=== PATIENT | female | born 1935 | race Caucasian/White ===

== ENCOUNTER 2016-11-06 21:53 | Emergency (ER) | payer MEDICARE ==
[2016-11-06 22:17] VITALS: BP 143/63
--- NOTE | 2016-11-06 22:20 | EDM.PDOC ---
ED HPI GENERAL MEDICAL PROBLEM - General Chief Complaint: General Stated Complaint: INSECT BITES Time Seen by Provider: 11/06/16 22:15 Source of Information: Reports: Patient, Family (). Denies: Old Records ([facility] EMR. No paper hospital chart available.) History Limitations: Reports: No Limitations - History of Present Illness INITIAL COMMENTS - FREE TEXT/NARRATIVE: The patient was brought to the emergency room via private automobile by her for evaluation of progressive pruritus secondary to multiple mosquito bites, which she obtained while watching fireworks on 11/04. Symptoms have been refractory to low-dose Benadryl with last 25 mg dose at 10 AM this morning. Patient has been using topical cortisone cream on a 3 times a day basis since this morning. No history of fever, local signs of infection, or other complaints Onset: Gradual Onset Date: 11/04/16 Duration: Constant, Getting Worse Location: Reports: Lower Extremity, Left, Lower Extremity, Right. Denies: Head , Face, Neck, Chest, Abdomen, Back, Pelvis, Upper Extremity, Left, Upper Extremity, Right, Radiates to Quality: Reports: Ache, Same as Previous Episode Improves with: Reports: None Worsens with: Reports: None Context: Reports: Other (As above) Associated Symptoms: Reports: Rash. 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 Medication(s) (As above) Bilateral Lower Leg Pain Score (Numeric/FACES): 8 - Related Data Allergies Allergy/AdvReac Type Severity Reaction Status Date / Time meperidine [From Demerol] Allergy Disorientat Verified 11/06/16 21:54 ion Home Meds: Home Meds Anastrozole [Arimidex] 1 mg PO DAILY 11/06/16 [History] Aspirin [Halfprin] 1 tab PO DAILY 11/06/16 [History] Calcium Phosphate Trib/Vit D3 [Citracal + D3 Gummies] 1 tab PO DAILY 11/06/16 [ History] Hydrocortisone [Cortisone] 1 applic TOP BID PRN #1 tube 11/06/16 [Rx] Lansoprazole [Prevacid] 30 mg PO DAILY 11/06/16 [History] Ranitidine [Zantac] 300 mg PO DAILY 11/06/16 [History] Ubidecarenone [Coq-10] 1 tab PO DAILY 11/06/16 [History] diphenhydrAMINE [Benadryl] 50 mg PO Q4H PRN #100 cap 11/06/16 [Rx] Past Medical History HEENT History: Reports: Cataract, Impaired Vision, Other (See Below). Denies: Glaucoma, Hard of Hearing, Macular Degeneration Other HEENT History: wears glasses Cardiovascular History: Reports: High Cholesterol. Denies: Afib, Aneurysm, Arrhythmia, Blood Clots/VTE/DVT, CAD, Heart Failure, Heart Murmur, Hypertension , ND, Syncope Musculoskeletal History: Reports: Arthritis, Back Pain, Chronic, Neck Pain, Chronic, Osteoarthritis, Osteoporosis. Denies: Amputation, Fracture, Gout, RA, SLE Oncologic (Cancer) History: Reports: Breast, Other (See Below) Other Oncologic History: Left-sided breast cancer diagnosed in 2011 with radiation therapy with surgery as below - Past Surgical History Oncologic Surgical History: Reports: Lumpectomy, Other (See Below) Other Oncologic Surgeries/Procedures: Left sided lumpectomy with lymph node dissection in September 2011 Social & Family History - Tobacco Use Smoking Status *Q: Never Smoker Smoking Cessation Information Provided To Patient: No Second Hand Smoke Exposure: No Second Hand Smoke Education Provided: No - Caffeine Use Caffeine Use: Reports: Coffee (2 cups per day) - Alcohol Use Alcohol Use History: No Days Per Week of Alcohol Use: 0 Alcohol Use in Last Twelve Months: No - Recreational Drug Use Recreational Drug Use: No Drug Use in Last 12 Months: No - Living Situation & Occupation Living situation: Reports: ED ROS GENERAL - Review of Systems Review Of Systems: See Below Constitutional: Reports: No Symptoms. Denies: Fever, Chills, Weakness, Fatigue , Night Sweats, Diaphoresis HEENT: Reports: No Symptoms, Glasses. Denies: Ear Pain, Eye Pain, Rhinitis, Throat Pain, Vertigo Respiratory: Reports: No Symptoms. Denies: Shortness of Breath, Wheezing, Cough Cardiovascular: Reports: No Symptoms. Denies: Chest Pain, Blood Pressure Problem, Edema, Lightheadedness Endocrine: Reports: No Symptoms. Denies: Fatigue GI/Abdominal: Reports: No Symptoms. Denies: Abdominal Pain, Anorexia, Black Stool, Bloody Stool, Constipation, Diarrhea, Decreased Appetite, Difficulty Swallowing, Hematochezia, Melena, Nausea, Vomiting : Reports: No Symptoms Musculoskeletal: Reports: No Symptoms. Denies: Joint Pain, Joint Swelling, Muscle Pain, Muscle Stiffness Skin: Reports: Pruritis, Rash (Secondary to insect bites). Denies: Diaphoresis , Wound Neurological: Reports: No Symptoms. Denies: Confusion, Numbness, Paresthesia, Tingling Psychiatric: Reports: No Symptoms. Denies: Agitation, Anxiety, Depression Hematologic/Lymphatic: Reports: No Symptoms Immunologic: Reports: No Symptoms ED EXAM, GENERAL - Physical Exam Exam: See Below Exam Limited By: No Limitations General Appearance: Alert, WD/WN, No Apparent Distress Head: Atraumatic, Normocephalic Neck: Normal Inspection, Supple, Non-Tender, Full Range of Motion. No: Lymphadenopathy (L), Lymphadenopathy (R), Thyromegaly Respiratory/Chest: No Respiratory Distress, Lungs Clear, Normal Breath Sounds, No Accessory Muscle Use, Chest Non-Tender. No: Pleural Rub, Retractions Cardiovascular: Normal Peripheral Pulses, Regular Rate, Rhythm, No Edema, No Gallop, No JVD, No Murmur, No Rub. No: Gallop/S3, Gallop/S4, Friction Rub Peripheral Pulses: 2+: Radial (L), Radial (R) GI/Abdominal: Normal Bowel Sounds, Soft, Non-Tender, No Organomegaly, No Distention, No Abnormal Bruit, No Mass. No: Guarding (Female) Exam: Deferred Rectal (Female) Exam: Deferred Back Exam: Normal Inspection, Full Range of Motion. No: CVA Tenderness (L), CVA Tenderness (R), Muscle Spasm Extremities: Normal Range of Motion, Non-Tender, No Pedal Edema, Normal Capillary Refill, Other (Multiple mosquito bites/insect bites on the lower extremities bilaterally with no local signs of infection) Neurological: Alert, Oriented, CN II-XII Intact, Normal Cognition, Normal Gait, No Motor/Sensory Deficits Psychiatric: Normal Affect, Normal Mood Skin Exam: No Rash, Wound/Incision (Insect bites as above). No: Increased Warmth, Lymphangitis Lymphatic: No Adenopathy Course - Vital Signs Last Recorded V/S: Last Vital Signs Temp 36.7 C 11/06/16 21:59 Pulse 88 11/06/16 21:59 Resp 18 11/06/16 21:59 BP 143/63 H 11/06/16 21:59 Pulse Ox 100 11/06/16 21:59 Vital Signs - 24 hr 11/06/16 21:59 Temperature [ 36.7 C Temporal] Pulse, 88 Peripheral [ Pulse Oximetry] Respiratory 18 Rate Blood Pressure 143/63 H [Right Upper Arm] O2 Sat by Pulse 100 Oximetry - Orders/Labs/Meds Orders: Active Orders 24 hr Category Date Time Status Obtain Past Medical Record [OM.PC] Routine Oth 11/06/16 22:21 Active Labs: None Meds: Medications Discontinued Medications Generic Name Dose Route Start Last Admin Trade Name Freq PRN Reason Stop Dose Admin Methylprednisolone Acetate 80 mg 11/06/16 22:22 11/06/16 22:25 Depo-Medrol IM 11/06/16 22:23 80 mg ONETIME ONE Administration - Radiology Interpretation Free Text/Narrative:: None Departure - Departure Time of Disposition: 23:15 Disposition: Home, Self-Care 01 Condition: Good Clinical Impression: Peptic reflux disease Insect bites Qualifiers: Encounter type: initial encounter Qualified Code(s): W57.XXXA - Bitten or stung by nonvenomous insect and other nonvenomous arthropods, initial encounter Hyperlipidemia Qualifiers: Hyperlipidemia type: unspecified Qualified Code(s): E78.5 - Hyperlipidemia, unspecified Osteoarthritis Qualifiers: Osteoarthritis location: multiple joints Osteoarthritis type: primary Qualified Code(s): M15.0 - Primary generalized (osteo)arthritis - Discharge Information Prescriptions: diphenhydrAMINE [Benadryl] 50 mg PO Q4H PRN #100 cap PRN Reason: Itching Instructions: Insect Bite, [id number] Referrals: PCP,None [Primary Care Provider] - Forms: ED Department Discharge Additional Instructions: 1. Follow up with your regular provider in 10-14 days as needed, if symptoms persist. 2. Sedation precautions with Benadryl 3. Antibacterial soap wash/soak with subsequent antibacterial dressing such as Neosporin, etc. as directed 2 times per day until the wound site completely heals. Keep the area clean and dry. 4. Ice packs as needed/discussed - Problem List & Annotations (1) Insect bites SNOMED Code(s): 103155512 Code(s): W57.XXXA - BIT/STUNG BY NONVENOM INSECT & OTH NONVENOM ARTHROPODS, INIT Status: Acute Priority: High Current Visit: Yes Onset Date: ~ Annotation/Comment:: IM Depo-Medrol given in the emergency room. Symptomatic relief as per discharge instructions for proper dose of Benadryl discussed with sedation precautions given Qualifiers: Encounter type: initial encounter Qualified Code(s): W57.XXXA - Bitten or stung by nonvenomous insect and other nonvenomous arthropods, initial encounter (2) Hyperlipidemia SNOMED Code(s): 88156752 Code(s): E78.5 - HYPERLIPIDEMIA, UNSPECIFIED Status: Chronic Priority: Medium Current Visit: Yes Annotation/Comment:: Not currently under therapy with patient apparently having a nonspecific intolerance to statins. No recent chest pain or anginal complaints Qualifiers: Hyperlipidemia type: unspecified Qualified Code(s): E78.5 - Hyperlipidemia , unspecified (3) Osteoarthritis SNOMED Code(s): 224127395 Code(s): M19.90 - UNSPECIFIED OSTEOARTHRITIS, UNSPECIFIED SITE Status: Chronic Priority: Medium Current Visit: Yes Annotation/Comment:: Stable by history Qualifiers: Osteoarthritis location: multiple joints Osteoarthritis type: primary Qualified Code(s): M15.0 - Primary generalized (osteo)arthritis (4) Peptic reflux disease SNOMED Code(s): 45420940 Code(s): K21.9 - GASTRO-ESOPHAGEAL REFLUX DISEASE WITHOUT ESOPHAGITIS Status: Chronic Priority: Medium Current Visit: Yes Annotation/Comment:: Stable by history - Problem List Review Problem List Initiated/Reviewed/Updated: Yes - My Orders Last 24 Hours: My Active Orders 11/06/16 22:21 Obtain Past Medical Record [OM.PC] Routine - Assessment/Plan Last 24 Hours: My Active Orders 11/06/16 22:21 Obtain Past Medical Record [OM.PC] Routine Assessment:: As above Plan: As above. Extensive precautions were given to the patient and her , who are in agreement with the treatment plan. See Patient Instructions for further treatment and plan.
[2016-11-06] MEDS ORDERED: methylPREDNISolone Acetate 80 MG/ML SDV IM ONE (22:22)
== END 2016-11-06 23:15 | disposition home or self-care (01) ==
LOC: LL.ED 21:53
DX: S80.862A Insect bite (nonvenomous), left lower leg, initial encounter (principal); S80.861A Insect bite (nonvenomous), right lower leg, initial encounter; E78.5 Hyperlipidemia, unspecified; M15.0 Primary generalized (osteo)arthritis; K21.9 Gastro-esophageal reflux disease without esophagitis; E78.00 Pure hypercholesterolemia, unspecified; M19.90 Unspecified osteoarthritis, unspecified site; M81.0 Age-related osteoporosis without current pathological fracture; Z85.3 Personal history of malignant neoplasm of breast; Z98.890 Other specified postprocedural states; Z79.82 Long term (current) use of aspirin; Z79.899 Other long term (current) drug therapy; Z88.6 Allergy status to analgesic agent; W57.XXXA Bitten or stung by nonvenomous insect and other nonvenomous arthropods, initial encounter
CPT/HCPCS: 96372; 99282; J1040

== ENCOUNTER 2018-09-26 15:12 | Emergency (ER) | payer MEDICARE ==
--- NOTE | 2018-09-26 16:08 | EDM.PDOC ---
ED HPI GENERAL MEDICAL PROBLEM - General Chief Complaint: Upper Extremity Injury/Pain Stated Complaint: left hand red and swollen Time Seen by Provider: 09/26/18 15:50 Source of Information: Reports: Patient History Limitations: Reports: No Limitations - History of Present Illness INITIAL COMMENTS - FREE TEXT/NARRATIVE: Patient is from [facility] and is visiting the area for a few weeks ( family). Noticed a red itchy area on the back of her left hand. Not painful, just very pruritic. Small red spot also noted right ankle but that one is not bothering her. During her visit here last summer hand multiple bites thought to be related to mosquitos and ended up being seen in the ER for it. Says she has no mosquito exposure in the area where she lives in [place]. No fevers/chills No other known similar lesions at this time. Denies other health changes. No SOB/respiratory changes. - Related Data Allergies Allergy/AdvReac Type Severity Reaction Status Date / Time meperidine [From Demerol] Allergy Disorientat Verified 09/26/18 15:14 ion Home Meds: Home Meds Aspirin [Halfprin] 1 tab PO DAILY 11/06/16 [History] Calcium Phosphate Trib/Vit D3 [Citracal + D3 Gummies] 1 tab PO DAILY 11/06/16 [ History] Ranitidine [Zantac] 150 mg PO DAILY 11/06/16 [History] Magnesium Oxide [Magnesium] 400 mg PO DAILY 09/26/18 [History] Omeprazole Magnesium [Prilosec Otc] 20 mg PO DAILY 09/26/18 [History] Past Medical History HEENT History: Reports: Cataract, Impaired Vision, Other (See Below) Other HEENT History: wears glasses Cardiovascular History: Reports: High Cholesterol Musculoskeletal History: Reports: Arthritis, Back Pain, Chronic, Neck Pain, Chronic, Osteoarthritis, Osteoporosis Immunologic History: Reports: Other (See Below) (Sensitive to mosquito bites) Oncologic (Cancer) History: Reports: Breast, Other (See Below) Other Oncologic History: Left-sided breast cancer diagnosed in 2011 with radiation therapy with surgery as below - Past Surgical History Oncologic Surgical History: Reports: Lumpectomy, Other (See Below) Other Oncologic Surgeries/Procedures: Left sided lumpectomy with lymph node dissection in September 2011 Social & Family History - Family History Family Medical History: Noncontributory - Caffeine Use Caffeine Use: Reports: Coffee (2 cups per day) - Living Situation & Occupation Living situation: Reports: Review of Systems - Review of Systems Review Of Systems: ROS reveals no pertinent complaints other than HPI. ED EXAM, GENERAL - Physical Exam Exam: See Below Exam Limited By: No Limitations General Appearance: Alert, WD/WN, No Apparent Distress Eye Exam: Bilateral Eye: EOMI, PERRL Nose: No: Nasal Deformity, Nasal Swelling, Nasal Drainage Throat/Mouth: Normal Voice, No Airway Compromise Head: Atraumatic, Normocephalic Neck: Supple Respiratory/Chest: No Respiratory Distress, Normal Breath Sounds (Female) Exam: Deferred Rectal (Female) Exam: Deferred Extremities: Normal Range of Motion, Non-Tender, No Pedal Edema, Normal Capillary Refill, Redness (small area of redness, mild swelling, on back of left hand, approx 4cm across. Small area of redness, no swelling, right ankle, 2cm across) Neurological: Alert, Oriented, Normal Cognition, Normal Gait, No Motor/Sensory Deficits Psychiatric: Normal Affect, Normal Mood Skin Exam: Warm, Dry, Intact, Other (see above) Course - Re-Assessments/Exams Free Text/Narrative Re-Assessment/Exam: Given history of similar issues with pruritus (seen for this summer 2016) s/p mosquito bites (given IM steroid at that time), suspect she is once again experiencing angioedema/histamine release s/p similar bites. Does not appear to be consistent with bacterial infection at this time. While discussing treatment options with the patient, she volunteered info that she had Prednisone with her that she had just in case her back pain would flare. She has not been taking it. Given this information, it was possible to recommend to her to take 10mg of Prednisone today and again tomorrow to help with this particular bite. Also recommended to get OTC Benadryl gel to apply topically on the bite to avoid sedation from PO Benadryl. Precautions reviewed. To follow up as needed if rash worsens or pain develops. Patient agreeable with plan. Departure - Departure Time of Disposition: 16:05 Disposition: Home, Self-Care 01 Condition: Good Clinical Impression: Insect bites Qualifiers: Encounter type: initial encounter Site of insect bite: hand Laterality: left Qualified Code(s): S60.562A - Insect bite (nonvenomous) of left hand, initial encounter - Discharge Information *PRESCRIPTION DRUG MONITORING PROGRAM REVIEWED*: Not Applicable *COPY OF PRESCRIPTION DRUG MONITORING REPORT IN PATIENT BENJAMIN: Not Applicable Referrals: PCP,Not In Area [Primary Care Provider] - Forms: ED Department Discharge Additional Instructions: Take 10mg of Prednisone today and tomorrow. 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 There are Benadryl pills too but they will possibly make you tired. If you pick the pills take one every 6 hours to help with redness and itching. Watch for changes. If you see worsening swelling/streaking of redness/ increased pain in the affected area, please return to the ER to get rechecked.
[2018-09-26 16:52] VITALS: BP 135/77
== END 2018-09-26 16:30 | disposition home or self-care (01) ==
LOC: LL.ED 15:12
DX: S60.562A Insect bite (nonvenomous) of left hand, initial encounter (principal); M19.90 Unspecified osteoarthritis, unspecified site; W57.XXXA Bitten or stung by nonvenomous insect and other nonvenomous arthropods, initial encounter
CPT/HCPCS: 99283